=== PATIENT | male | born 1940 | race Caucasian/White ===

== ENCOUNTER 2016-09-09 18:40 | Observation (INO) | payer OTHER ==
[~2016-09-09] VITALS: Ht 182.9 cm; Wt 83.7 kg
[2016-09-09 19:02] LABS: BASO % 0.3 %; BASO ABS # 0.02 K/uL (0-0.2); COMPLETE YES; EOS % 5.6 %; HEMATOCRIT 43.7 % (42-52); IG% 0.2 %; LYMPH % 11.4 %; LYMPH ABS # 0.76 K/uL (1.2-3.4); MEAN CORPUSCULAR HEMOGLOBIN 33.1 pg (25-34); MEAN CORPUSCULAR HGB CONC 35.9 g/dl (32-36); MEAN PLATELET VOLUME 10.9 fL (7.4-10.4); MONO % 6.2 %; NEUT % 76.3 %; PLATELET COUNT 124 K/uL (130-400); RED BLOOD COUNT 4.75 M/uL (4.7-6.1); WHITE BLOOD COUNT 6.65 K/uL (4.8-10.8)
[2016-09-09 19:18] LABS: BUN/CREATININE RATIO 13.5 (10-20); CALCIUM 9.3 mg/dl (8.5-10.1); CREATININE 1.2 mg/dl (0.60-1.40); POTASSIUM 3.9 mmol/L (3.5-5.1)
[2016-09-09 19:23] LABS: CKMB/CK RATIO 2.3 (0-3.0)
--- NOTE | 2016-09-09 19:34 | DIAGNOSTIC IMAGING REPORT ---
CHEST ONE VIEW PORTABLE HISTORY: Atypical Chest Pain COMPARISON: None. FINDINGS: No pneumothorax. No pleural effusions. The heart is top normal in size. This mild diffuse interstitial thickening. A few linear densities the left lung base favor subsegmental atelectasis. No focal lung consolidations to suggest pneumonia. IMPRESSION: Mild diffuse interstitial thickening. This could be chronic or due to mild congestive change. Electronically signed by: Rickie Castle M.D. 09/09/2016 7:33 PM Dictated Date/Time: 09/09/2016 7:32 PM
[2016-09-09] MEDS ORDERED: NITROGLYCERIN OINT 2% 1GM PACKET EXT SCH (20:00)
[2016-09-09] MEDS ORDERED: NITROGLYCERIN OINT 2% 1GM PACKET ONE (20:10)
[2016-09-09] MEDS ORDERED: OMEG12006 PO (20:22)
[2016-09-09] MEDS ORDERED: DOCU100C31 PO (20:22)
[2016-09-09] MEDS ORDERED: PROAIR INH (20:22)
[2016-09-09] MEDS ORDERED: TRAZ50TA35 PO (20:22)
[2016-09-09] MEDS ORDERED: ALOE1GEL2 TOP (20:22)
[2016-09-09] MEDS ORDERED: FLUT230A INH (20:22)
[2016-09-09] MEDS ORDERED: ASPI81TA28 PO (20:22)
[2016-09-09] MEDS ORDERED: TUMERIC PO (20:22)
[2016-09-09] MEDS ORDERED: [UNRECOGNIZED DRUG - OTHER] PO (20:22)
[2016-09-09] MEDS ORDERED: LISI-729 PO (20:22)
[2016-09-09] MEDS ORDERED: ALOE500C PO (20:31)
--- NOTE | 2016-09-09 20:39 | EMERGENCY ROOM VISIT NOTE ---
History Report prepared by Virgie: Adam Daniel Under the Supervision of: Dr. Chandan Lantigua D.O. First contact with patient: 18:44 Chief Complaint: CHEST PAIN Stated Complaint: CHEST PAIN History of Present Illness The patient is a 76 year old male who presents to the Emergency Room with complaints of persistent chest pains that began this evening at 1500, four hours prior to arrival. He describes this pain as somewhat "sharp." This pain is separate from a chronic pain that he has been experiencing for the past 3-4 days. This pain feels like a "cramp" in his left/right upper abdomen. This pain is reproducible with palpation. He is also experiencing some dyspnea on exertion , and states that he has been becoming short of breath when walking up the stairs which is not normal for him. The patient also began to develop a cold yesterday and has been coughing persistently. The patient met with a welder gas tungsten arc a few days prior to arrival where he had an echocardiogram and chest CT performed. He was told that he had a cardiomegaly, a heart murmur, and a rapid heart beat. He is scheduled to meet with a welder gas tungsten arc on September 18. Pt denies headache, change in vision, fevers, nausea, vomiting, diarrhea, pain with urination, and melena. 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 A total of 10 systems reviewed and were otherwise negative. Past Medical & Surgical Medical Problems: (1) Chest pain Family History No pertinent family history secondary to age. Social History Drug Use: none Marital Status: Housing Status: lives with significant other Occupation Status: retired Current/Historical Medications Scheduled Aloe Vera (Aloe Vera), 1 TAB PO DAILY Aspirin (Aspirin Ec), 81 MG PO DAILY Fluticasone-Salmeterol 230/21 Mcg (Advair Hfa 230/21 Mcg), 2 PUFFS INH BID Lisinopril (Prinivil), 5 MG PO DAILY [place]-3 Fatty Acids ([place] 3), 1 CAP PO DAILY Trazodone Hcl (Trazodone), 0.25 MG PO HS [Proair], 2 PUFF INH PRN UD [Super Beats], 1 DOSE PO DAILY [Tumeric], 1 TAB PO DAILY Scheduled PRN Docusate Sodium (Docusate Sodium), 1 CAP PO BID PRN for Constipation Allergies Coded Allergies: Adhesives (Verified Allergy, Unknown, RASH, 09/09/16) Ciprofloxacin (Verified Allergy, Unknown, HIVES, 09/09/16) Tramadol (Verified Allergy, Unknown, HIVES, 09/09/16) Uncoded Allergies: SEASONAL (Allergy, Unknown, SNEEZING, 09/09/16) Physical Exam Vital Signs Date Time Temp Pulse Resp B/P Pulse Ox O2 Delivery O2 Flow Rate FiO2 09/09/16 20:14 73 16 113/65 94 Room Air 09/09/16 19:35 73 16 111/68 93 Room Air 09/09/16 19:02 82 09/09/16 18:52 Room Air 09/09/16 18:48 95 Room Air 09/09/16 18:48 36.5 84 18 141/72 95 Room Air Physical Exam GENERAL: Sitting up in bed. Well appearing, well nourished, no distress, non- toxic EYE EXAM: normal conjunctiva, PERRL and EOM's grossly intact OROPHARYNX: no exudate, no erythema, lips, buccal mucosa, and tongue normal and mucous membranes are moist NECK: supple, no nuchal rigidity, no adenopathy, non-tender LUNGS: Clear to auscultation. Normal chest wall mechanics CHEST: Reproducible left chest wall tenderness. HEART: no murmurs, S1 normal and S2 normal ABDOMEN: abdomen soft, non-tender, normo-active bowel sounds, no masses, no rebound or guarding. BACK: Back is symmetrical on inspection and there is no deformity, no midline tenderness, no CVA tenderness. SKIN: no rashes and no bruising UPPER EXTREMITIES: upper extremities are grossly normal. LOWER EXTREMITIES: Calves are equal bilaterally. No pitting edema. NEURO EXAM: Normal sensorium, cranial nerves II-XII grossly intact, normal speech, no gross weakness of arms, no gross weakness of legs. Medical Decision & Procedures ER Provider Diagnostic Interpretation: Xray results per the radiologist and my interpretation. CHEST ONE VIEW PORTABLE HISTORY: Atypical Chest Pain COMPARISON: None. FINDINGS: No pneumothorax. No pleural effusions. The heart is top normal in size. This mild diffuse interstitial thickening. A few linear densities the left lung base favor subsegmental atelectasis. No focal lung consolidations to suggest pneumonia. IMPRESSION: Mild diffuse interstitial thickening. This could be chronic or due to mild congestive change. Electronically signed by: Rickie Castle M.D. 09/09/2016 7:33 PM Dictated Date/Time: 09/09/2016 7:32 PM Laboratory Results 09/09/16 18:50 Red Blood Count 4.75, Mean Corpuscular Volume 92.0, Mean Corpuscular Hemoglobin 33.1, Mean Corpuscular Hemoglobin Concent 35.9, Mean Platelet Volume 10.9, Neutrophils (%) (Auto) 76.3, Lymphocytes (%) (Auto) 11.4, Monocytes (%) (Auto) 6.2, Eosinophils (%) (Auto) 5.6, Basophils (%) (Auto) 0.3, Neutrophils # (Auto) 5.08, Lymphocytes # (Auto) 0.76, Monocytes # (Auto) 0.41, Eosinophils # (Auto) 0.37, Basophils # (Auto) 0.02 09/09/16 18:50 Test 09/09/16 18:50 White Blood Count 6.65 K/uL (4.8-10.8) Red Blood Count 4.75 M/uL (4.7-6.1) Hemoglobin 15.7 g/dL (14.0-18.0) Hematocrit 43.7 % (42-52) Mean Corpuscular Volume 92.0 fL (80-100) Mean Corpuscular Hemoglobin 33.1 pg (25-34) Mean Corpuscular Hemoglobin Concent 35.9 g/dl (32-36) Platelet Count 124 K/uL (130-400) Mean Platelet Volume 10.9 fL (7.4-10.4) Neutrophils (%) (Auto) 76.3 % Lymphocytes (%) (Auto) 11.4 % Monocytes (%) (Auto) 6.2 % Eosinophils (%) (Auto) 5.6 % Basophils (%) (Auto) 0.3 % Neutrophils # (Auto) 5.08 K/uL (1.4-6.5) Lymphocytes # (Auto) 0.76 K/uL (1.2-3.4) Monocytes # (Auto) 0.41 K/uL (0.11-0.59) Eosinophils # (Auto) 0.37 K/uL (0-0.5) Basophils # (Auto) 0.02 K/uL (0-0.2) RDW Standard Deviation 45.9 fL (36.4-46.3) RDW Coefficient of Variation 13.6 % (11.5-14.5) Immature Granulocyte % (Auto) 0.2 % Immature Granulocyte # (Auto) 0.01 K/uL (0.00-0.02) Anion Gap 9.0 mmol/L (3-11) Est Creatinine Clear Calc Drug Dose 63.4 ml/min Estimated GFR () 67.7 Estimated GFR (Non- 58.4 BUN/Creatinine Ratio 13.5 (10-20) Calcium Level 9.3 mg/dl (8.5-10.1) Total Creatine Kinase 154 U/L (39-308) Creatine Kinase MB 3.6 ng/ml (0.5-3.6) Creatine Kinase MB Ratio 2.3 (0-3.0) Troponin I 0.024 ng/ml (0-0.045) Laboratory results per my review. Medications Administered Medications (Trade) Dose Ordered Sig/Arsenio Route Start Time Stop Time Status Last Admin Dose Admin Nitroglycerin (Nitroglycerin 2% Oint) 1 inch Q6H EXT 09/09/16 20:00 09/09/16 22:54 DC 09/09/16 20:13 1 INCH ECG Indication: chest pain Rate (beats per minute): 85 Rhythm: sinus rhythm Findings: other (LAD, Peak t-wave in V2) ED Course ED COURSE: Vital signs were reviewed and showed normal vitals. The patients medical record was reviewed The above diagnostic studies were performed and reviewed. ED treatments and interventions as stated above. 1847: The patient was evaluated in room A12. A complete history and physical examination was performed. 0: I discussed the case with Physician Assistant Dick at this time, she will evaluate the patient for further treatment. 1958: I checked on the patient at this time, he denies any new chest pain or shortness of breath. 1999: Ordered Nitroglycerin 1 inch EXT. 2002: Upon reevaluation, the patient is feeling well.I discussed my findings with the patient and he understands and agrees with the treatment plan. Based on the patients age, coexisting illnesses, exam and lab findings the decision to treat as an inpatient was made. The patient remained stable while under my care. The patient will be evaluated for further management. Medical Decision Differential diagnoses includes but is not limited to acute coronary syndrome, myocardial infarction, pericarditis, pulmonary embolus, aortic dissection, pneumonia, pneumothorax, musculoskeletal, shingles, esophageal. Patient is a 76-year-old male who presents the ER for 2 distinct tightness of chest pain. He has had one sharp left-sided chest pain which is been present for the past 3 days. This has been unchanged. It is worsened on palpation. He also complains of a another dull achy chest pain which is located on the left side of his chest. That has been coming and going all day today. It worsened around 3 PM. No radiation to the jaw or arm. Mild shortness of breath. Pain was completely relieved with one nitroglycerin via EMS. He was given 4 aspirins. Per report from he does have a history of a cardiomyopathy. Uncertain of the etiology as this was worked up at [facility]. EKG was repeated and did have a new flipped T-wave in the inferior lead. He declined any new chest pain or shortness of breath. He was placed on Nitropaste. Upon was tachycardic but not positive. With him being chest pain-free and a positive troponin did not elect to start him on heparin drip at this time. Discussed case with internal medicine and he was admitted stable for cardiac workup. Consults Time Called: 1949 Consulting Physician: Physician Assistant Laurie Dick Returned Call: 1958 I discussed the case with Physician Assistant Dick at this time, she will evaluate the patient for further treatment. Impression Primary Impression: Unstable angina Additional Impression: Acute electrocardiogram changes Scribe Attestation The scribe's documentation has been prepared under my direction and personally reviewed by me in its entirety. I confirm that the note above accurately reflects all work, treatment, procedures, and medical decision making performed by me. Departure Information Dispostion Being Evaluated By Hospitalist Patient Instructions My [facility] Problem Qualifiers
--- NOTE | 2016-09-09 20:49 | History and Physical ---
History & Physical Date & Time of Service: Sep 09, 2016 at 20:32 Chief Complaint: Chest Pain Primary Care Physician: No Doctor, Assigned History of Present Illness Source: patient, family, hospital records This patient is a 76-year-old male presents emergency department complaining of a cramp-like sensation on both sides of his chest that has been going on intermittently over the last 4 days. He also notes that he has had dyspnea after scaling one flight of steps. This has been going on for the last several weeks. The patient is still complaining of the pain. In Route to the emergency department, the patient received nitroglycerin. This did not significantly change his pain. The patient reportedly had an echocardiogram and a CT of his chest one week ago. He was initially told that the tests were normal. He was called 2 days later and told that he had cardiomegaly. They advised him on limiting exercise until he could be seen by a air tucker. He is scheduled to see a air tucker in [place] next week. The patient denies any other known coronary artery disease. He does not smoke. He did remain active throughout his life. The patient also reports a cold with a mild productive cough. No fever or chills. This is been going on for quite some time. He does have a history of asthma that was confirmed with PFTs last week. Past Medical/Surgical History Asthma HTN anxiety Family History Mother- in her 80s. History of diabetes Father-also in his 80s from lung disease-he was a coal deliverer and a heavy smoker Social History Smoking Status: Never Smoker Alcohol Use: socially Marital Status: Housing status: lives with significant other Occupational Status: retired Multi-Drug Resistant Organisms History of MDRO: No Allergies Coded Allergies: Adhesives (Verified Allergy, Unknown, RASH, 09/09/16) Ciprofloxacin (Verified Allergy, Unknown, HIVES, 09/09/16) Tramadol (Verified Allergy, Unknown, HIVES, 09/09/16) Uncoded Allergies: SEASONAL (Allergy, Unknown, SNEEZING, 09/09/16) Home Medications Scheduled Aloe Vera (Aloe Vera), 1 TAB PO DAILY Aspirin (Aspirin Ec), 81 MG PO DAILY Fluticasone-Salmeterol 230/21 Mcg (Advair Hfa 230/21 Mcg), 2 PUFFS INH BID Metoprolol Tartrate (Lopressor), 25 MG PO BID [place]-3 Fatty Acids ([place] 3), 1 CAP PO DAILY Trazodone Hcl (Trazodone), 0.25 MG PO HS [Proair], 2 PUFF INH PRN UD [Super Beats], 1 DOSE PO DAILY [Tumeric], 1 TAB PO DAILY Scheduled PRN Docusate Sodium (Docusate Sodium), 1 CAP PO BID PRN for Constipation Review of Systems 10 system review performed and negative unless noted in HPI or below Physical Exam Vital Signs Date Time Temp Pulse Resp B/P Pulse Ox O2 Delivery O2 Flow Rate FiO2 09/09/16 19:35 73 16 111/68 93 Room Air 09/09/16 19:02 82 09/09/16 18:52 Room Air 09/09/16 18:48 95 Room Air 09/09/16 18:48 36.5 84 18 141/72 95 Room Air General Appearance: + mild distress (mildly anxious in appearance) Head: normocephalic Eyes: EOMI Neck: no JVD Respiratory/Chest: lungs clear, + pertinent finding (TTP L anterior chest) Cardiovascular: regular rate, rhythm Abdomen/GI: normal bowel sounds, non tender, soft Extremities/Musculoskelatal: no calf tenderness, no pedal edema Neurologic/Psych: oriented x 3 Skin: warm/dry Diagnostics Laboratory Results Results Past 24 Hours Test 09/09/16 18:50 Range/Units White Blood Count 6.65 4.8-10.8 K/uL Red Blood Count 4.75 4.7-6.1 M/uL Hemoglobin 15.7 14.0-18.0 g/dL Hematocrit 43.7 42-52 % Mean Corpuscular Volume 92.0 80-100 fL Mean Corpuscular Hemoglobin 33.1 25-34 pg Mean Corpuscular Hemoglobin Concent 35.9 32-36 g/dl Platelet Count 124 130-400 K/uL Mean Platelet Volume 10.9 7.4-10.4 fL Neutrophils (%) (Auto) 76.3 % Lymphocytes (%) (Auto) 11.4 % Monocytes (%) (Auto) 6.2 % Eosinophils (%) (Auto) 5.6 % Basophils (%) (Auto) 0.3 % Neutrophils # (Auto) 5.08 1.4-6.5 K/uL Lymphocytes # (Auto) 0.76 1.2-3.4 K/uL Monocytes # (Auto) 0.41 0.11-0.59 K/uL Eosinophils # (Auto) 0.37 0-0.5 K/uL Basophils # (Auto) 0.02 0-0.2 K/uL RDW Standard Deviation 45.9 36.4-46.3 fL RDW Coefficient of Variation 13.6 11.5-14.5 % Immature Granulocyte % (Auto) 0.2 % Immature Granulocyte # (Auto) 0.01 0.00-0.02 K/uL Sodium Level 140 136-145 mmol/L Potassium Level 3.9 3.5-5.1 mmol/L Chloride Level 104 98-107 mmol/L Carbon Dioxide Level 27 21-32 mmol/L Anion Gap 9.0 3-11 mmol/L Blood Urea Nitrogen 16 7-18 mg/dl Creatinine 1.20 0.60-1.40 mg/dl Est Creatinine Clear Calc Drug Dose 63.4 ml/min Estimated GFR () 67.7 Estimated GFR (Non- 58.4 BUN/Creatinine Ratio 13.5 10-20 Random Glucose 93 70-99 mg/dl Calcium Level 9.3 8.5-10.1 mg/dl Total Creatine Kinase 154 39-308 U/L Creatine Kinase MB 3.6 0.5-3.6 ng/ml Creatine Kinase MB Ratio 2.3 0-3.0 Troponin I 0.024 0-0.045 ng/ml Diagnostic Radiology Patient Name: ARNAV ALFARO Unit Number: [id number] Dictated: 09/09/161931 Transcribed: 09/09/161931 Sprout Printed Date/Time: [~ rep prt dt]/[~ rep prt tm] [~ rep ct labl] - [~ rep ct ivnm] [facility] [place] [address] Dictated: 09/09/161931 Transcribed: 09/09/161931 Array Storm Printed Date/Time: [~ rep prt dt]/[~ rep prt tm] [~ rep ct labl] - [~ rep ct ivnm] Patient: ARNAV ALFARO Address1: [address] [place] [address] Rec: [id number] Address2: Acct ID: [id number] [facility] Zip: [place] [id number] Date: 1940 Sex: M Room/Bed: Ref Phy: SC: MARCELINO Att Phy: Report #: [id number] Rimma Phy: Test: [id number] Admit Phy: Medical Record Administrator: JUVENAL Interpreting Phy: Rickie Castle MD Diagnosis: CHEST PAIN Ordering Phy: Chandan Lantigua DO Service Date: 09/09/16 Admit Date: 09/09/16 MNE: [id number] CONF: DICTATED BY: Rickie Castle M.D.]] CC: Chandan Lantigua, Endcc: [~ rep ct add3]] CHEST ONE VIEW PORTABLE HISTORY: Atypical Chest Pain COMPARISON: None. FINDINGS: No pneumothorax. No pleural effusions. The heart is top normal in size. This mild diffuse interstitial thickening. A few linear densities the left lung base favor subsegmental atelectasis. No focal lung consolidations to suggest pneumonia. IMPRESSION: Mild diffuse interstitial thickening. This could be chronic or due to mild congestive change. Electronically signed by: Rickie Castle M.D. 09/09/2016 7:33 PM Dictated Date/Time: 09/09/2016 7:32 PM The status of this report is Signed. Draft = Not yet reviewed or approved by Radiologist. Signed = Reviewed and approved by Radiologist. <AttendingPhy></AttendingPhy> <FamilyPhy></FamilyPhy> <PrimaryPhy></PrimaryPhy> <UnitNumber>[id number]</UnitNumber> <VisitNumber>[id number]</VisitNumber> < PatientName>ARNAV ALFARO</PatientName> <DateOfBirth>1940</DateOfBirth > <Location>[facility]</Location> <ServiceDate>09/09/16</ServiceDate> <MNE>ESINDI</ MNE> <OrderingPhy>Chandan Lantigua DO</OrderingPhy> <OrderingPhyMNE>f rep ord mne</OrderingPhyMNE> <DictatingPhyMNE>f rep dict mne</DictatingPhyMNE> < CCListMNE>f rep ct mne</CCListMNE> <AdmittingPhyMNE>f pt admit dr blanco</ AdmittingPhyMNE> <AttendingPhyMNE>f pt attend dr blanco</AttendingPhyMNE> <ConsultingPhyMNE>f pt consult dr blanco</ConsultingPhyMNE> <FamilyPhyMNE>f pt fam dr blanco</FamilyPhyMNE> <OtherPhyMNE>f pt other dr blanco</OtherPhyMNE> < PrimaryPhyMNE>f pt prim care dr blanco</PrimaryPhyMNE> <ReferringPhyMNE>f pt referring dr blanco</ReferringPhyMNE> EKG NSR 85 BPM T wave inversions in III Impression Assessment and Plan 76 y/o male with possible history of cardiomegaly presenting with CP/cramping for 3-4 days. Reproducible pain on exam, but did have some T wave inversions in lead III Chest pain -observe in telemetry -follow cardiac enzymes every 8 hr x 2 -daily EKG -EKG with worsening pain -continue ASA -continue nitroglycerin paste -echo in AM -cardiology consult: [facility] HTN -continue lisinopril 5 mg daily Asthma -continue Advair -duonebs PRN Cough-chronic Anxiety -Continue trazodone 0.25 mg HS DVT prophylaxis -Consider chemical means if pt is not d/c'ed tomorrow -TEDS, SCDs CODE STATUS -LEVEL I FULL CODE Level of Care Telemetry Resuscitation Status FULL RESUSCITATION VTE Prophylaxis Risk Level: Low Given or contraindicated: T.EVarun Stockings, SCD's Assessment and Plan Attending Addendum: I have physically seen and examined this patient, have directed their medical care, have supervised the PA's activity, and agree with the H&P as noted above, with the following changes: NONE. Ex The patient is awake, alert and oriented 3, normocephalic and atraumatic, lying in bed , anxious, and in mild distress. HEENT--PERRL, EOMI, mucous membranes and oropharynx dry. Neck--supple, no JVD or bruits, thyroid normal, trachea midline, no adenopathy. Heart--normal S1 and S2, no extra beats, no murmurs, rubs or gallops. Lungs--clear bilaterally with good air movement, no respiratory distress, no accessory muscle use, mildly tender to touch left anterior chest wall. Abdomen--normal bowel sounds and soft, nontender and nondistended, no hernias or masses, no organomegaly. Extremities--no cyanosis, clubbing or edema. There are good distal pulses b/l. Dermatologic--normal skin turgor, normal color, warm and dry, no abnormal lymph nodes, no rash. Neurologic--cranial nerves II through XII grossly intact, motor and sensory examination normal. Rheumatologic--normal range of motion, nontender, muscles and joints. Psychiatric--mildly anxious. Assessment and Plan: Precordial Chest Pain/hypertension--the patient be admitted to the telemetry unit, for serial cardiac enzymes, cardiac rhythm monitoring and a 2-D echocardiogram with Dopplers. His EKG did show T-wave inversions in lead III. We'll place on aspirin 81 mg by mouth daily, Nitropaste 1 inch anterior chest wall every 6 hours, and consult cardiology in the a.m. . Continue lisinopril 5 mg by mouth daily. Asthma--continue Advair, but if his cardiac workup is negative, and the chest pain is recurrent, would consider changing him to Flovent and removing the salmeterol component. DuoNeb's will be available to 4 hours when necessary. Anxiety/insomnia --continue trazodone 0.25 mg by mouth at bedtime.
[2016-09-09] MEDS ORDERED: TRAZODONE HCL 50 MG TAB PO SCH (21:00)
[2016-09-09] MEDS ORDERED: ALBUT/IPRATROP 3MG/0.5MG NEB 3 ML VIAL INH PRN (21:00)
[2016-09-09] MEDS ORDERED: ONDANSETRON INJ 2 MG/ML 2 ML VIAL IV PRN (21:00)
[2016-09-09] MEDS ORDERED: ACETAMINOPHEN 325 MG TAB PO PRN (21:00)
[2016-09-09] MEDS ORDERED: IV FLUIDS COMPLETED PRN (21:30)
[2016-09-10] MEDS: NITROGLYCERIN OINT 2% 1GM PACKET EXT SCH ×2 (01:53→09:40)
[2016-09-10 02:37] VITALS: BP 127/73; PULSE 70; TEMP 36.6; O2SAT 97; Ht 182.9 cm; Wt 83.7 kg
[2016-09-10 03:03] LABS: HEMATOCRIT 38.4 % (42-52); MEAN CELL VOLUME 89.9 fL (80-100); MEAN CORPUSCULAR HEMOGLOBIN 32.1 pg (25-34); MEAN CORPUSCULAR HGB CONC 35.7 g/dl (32-36); RED BLOOD COUNT 4.27 M/uL (4.7-6.1)
[2016-09-10 03:29] LABS: BLOOD UREA NITROGEN 16 mg/dl (7-18); BUN/CREATININE RATIO 15.9 (10-20); CALCIUM 8.5 mg/dl (8.5-10.1); CARBON DIOXIDE 26 mmol/L (21-32); CHLORIDE 105 mmol/L (98-107); GLUCOSE 104 mg/dl (70-99); MAGNESIUM 2.1 mg/dl (1.8-2.4); MEAN PLATELET VOLUME 9.9 fL (7.4-10.4); PLATELET COUNT 97 K/uL (130-400); POTASSIUM 4.1 mmol/L (3.5-5.1); SODIUM 139 mmol/L (136-145)
[2016-09-10 03:30] LABS: BASO % 0.2 %; BASO ABS # 0.01 K/uL (0-0.2); COMPLETE YES; EOS % 3.3 %; IG% 0.2 %; LYMPH % 7.8 %; LYMPH ABS # 0.49 K/uL (1.2-3.4); MONO % 6.7 %; NEUT % 81.8 %; PLT ESTIMATE DECREASED
[2016-09-10 03:34] LABS: CKMB/CK RATIO 2.5 (0-3.0)
[2016-09-10 08:00] VITALS: BP 131/75; PULSE 73; TEMP 36.9; O2SAT 96
[2016-09-10] MEDS ORDERED: LISINOPRIL 5 MG TAB PO SCH (09:00)
[2016-09-10] MEDS ORDERED: ASPIRIN 81 MG ECTAB PO SCH (09:00)
[2016-09-10] MEDS ORDERED: METOPROLOL TARTRATE 25 MG TAB PO SCH (09:30)
[2016-09-10] MEDS ORDERED: LPR25 PO (10:13)
--- NOTE | 2016-09-10 10:18 | Discharge Instructions ---
Discharge Instructions Admission Reason for Admission: Chest Pain Discharge Discharge Diagnosis / Problem: atypical Chest pain Discharge Goals Goal(s): Decrease discomfort, Improve function, Increase independence, Improve disease control, Improve nutritional status, Learn about illness, Diagnostic testing, Therapeutic intervention, Prevent Disease Progression, Specific goals Activity Recommendations Activity Limitations: resume your previous activity . Instructions / Follow-Up Instructions / Follow-Up you have chest pain and history of cardiomegaly clay artist saw you, you need to follow up with cardiology as instructed You are on Aspirin , you need to continue it, However, your Platelet count is dropping yesterday was 124 K, to day is 97 K, You need to follow up with your primary care physician or clay artist to adjust the medication of Aspirin, and follow-up lab checking of Platelet levels , I recommend to check Platelet level in 2 week with your family doctor You have hypertension your blood pressure medicine is changed in this hospitalization - call your pcp if have chest pain, sob, palpitation, or if has any questions - take medication as instructed, never overdose or any misuse, or take with alcohol, because misuse of medicine may cause organ damage or , call your primary care physician if have questions of medicaitons. - call your primary care physician OR go to local emergency room if has any fever/chill, chest pain, shortness of breathing, nausea/vomiting/abdominal pain , facial droop/slurry speech/local weakness, or if has any questions. - fall precaution - diet as instructed - you need to follow up with your subspecialist - you should understand that it is important to follow up the above instruction , and "not following the above instruction" may cause delayed or missed care of your medical conditions which may cause permanent organ damage and even . Current Hospital Diet Patient's current hospital diet: Regular Diet Discharge Diet Recommended Diet: AHA Diet (Heart Healthy) Pending Studies Studies pending at discharge: no Medical Emergencies . Who to Call and When: Medical Emergencies: If at any time you feel your situation is an emergency, please call 911 immediately. . Non-Emergent Contact Non-Emergency issues call your: Primary Care Provider, Tableau Analyst . . "Provider Documentation" section prepared by Stephen Mishra. VTE Core Measure Inpt VTE Proph given/why not?: Caitlin Ferrer, HALI's
--- NOTE | 2016-09-10 10:42 | CARDIOLOGY CONSULTATION ---
DATE OF CONSULTATION: 09/10/2016 REQUESTING: Dr. Alycia Evans. SENIOR HRIS ANALYST: Guero Rice DO, [facility]. REASON FOR CONSULTATION: Chest discomfort, shortness of breath, abnormal echocardiogram. Dear Cristina, it was a pleasure to see Lito today in consultation in the Emergency Room with regards to his chest discomfort and progressive shortness of breath. As you know, his history has been well documented. He describes progressive shortness of breath over the last 2 years. He notes in the summer though he could still walk 2 or 3 miles and then in the last of couple of months he is only able to walk about 50 yards before he has to stop. He stops due to progressive dyspnea. He notes it takes him about 5 minutes to recover and then his symptoms improve and again he can walk an additional 50 yards. He notes he went to a sporting event near [place] and had to walk a long distance back to his car and had to stop multiple times. Before the summer he was in incredible shape, [place]. He is an avid outdoorsman and describes even walking in the [facility] even this past fall without significant shortness of breath. He does have some chest discomfort today, it sounds like it is reproducible, it is along his rib margin and then along his sternum bilaterally. He also has a cough. He denies any fevers or chills. He describes some postnasal drip. He describes cramping in his legs to the point that his both legs can entirely cramp. He describes a "circulation problem." With activity, he is noting some lightheadedness currently that is new for him. He denies any presyncope, syncope, lower extremity edema, symptoms of claudication. His appetite is stable. Her weight is stable. He is frustrated that he cannot do what he would like to do and I do think there is a significant anxiety component when he was called after an echocardiogram was completed at [facility] for which he was told to stop doing any and all activity. The rest of review of systems is otherwise negative. PAST MEDICAL HISTORY: 1. Echocardiogram in 08/2016 at [facility] with moderate left ventricular hypertrophy and prominent thickening of the basal anterior septal wall with a LVOT gradient of 2.7 m/sec at rest, which increased to 6 m/sec with Valsalva. There was systolic anterior motion of the anterior mitral valve leaflet with moderate mitral regurgitation. His LV function was preserved at 75%. 2. Asthma, although he had PFTs at [facility] that did not suggest small airway disease his methacholine challenge test was positive. 3. Negative stress echo for ischemia 02/2016 at [facility] exercising to heart rate of 80% of maximal predicted for his age. There was no evidence of exercise-induced regional wall motion abnormalities and no ischemic changes on his EKG. 4. EKG consistent with left ventricular hypertrophy and left anterior fascicular block. 5. Anxiety. OUTPATIENT MEDICATIONS: Aloe vera, aspirin, Advair, lisinopril 5 mg daily, Temple-3 fatty acids, trazodone. SOCIAL HISTORY: Denies any smoking or tobacco. He worked in the . He is . He is an avid outdoorsman. FAMILY HISTORY: Mom in her 80s of diabetes. Father in his 80s from lung disease. 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 PHYSICAL EXAMINATION: GENERAL: He is awake, alert, oriented x3. He is in no acute distress. He looks anxious. VITAL SIGNS: His heart rate is 70, his blood pressure 127/73, he is 97% on room air. HEENT: 2+ carotid upstrokes. He does have carotid bruits radiating likely from his heart bilaterally. His jugular venous pressure did not appear elevated. His sclerae are anicteric. His hearing is normal. LUNGS: Clear to auscultation bilaterally. No rales, rhonchi or wheezing with forced expiration, there was no wheezing present. HEART: Tachycardic, but regular. He has a loud crescendo-decrescendo murmur in systole with Valsalva. The murmur increases in intensity and remains increased even after Valsalva was released and with hand informatics scientist the murmur does lessen consistent with LVOT obstruction. ABDOMEN: Soft, nontender, nondistended, positive bowel sounds. EXTREMITIES: No clubbing, cyanosis or edema. He has brisk pounding 2+ dorsalis pedis pulses. SKIN: No ecchymosis or bruising. NEUROLOGIC: Grossly nonfocal. PSYCHIATRIC: He appeared anxious. MUSCULOSKELETAL: He has reproducible chest discomfort over the left side of his rib cage along the sternum. DATA: EKG here normal sinus rhythm, left ventricular hypertrophy, left anterior fascicular block, unchanged from his EKG of February 2016 at [facility]. Echo and stress echo as discussed above. Chest x-ray mild diffuse interstitial thickening, could be chronic. LABORATORY STUDIES: His troponins are negative x2. His sodium is 139, potassium of 4.1, BUN 16, creatinine 1.0. He does have thrombocytopenia with a platelet count of 97,000 initially 124,000 yesterday. His hemoglobin was 13.7 with a hematocrit of 38.4. IMPRESSION: 1. Hypertrophic cardiomyopathy with thickening of the basal septum with significant concentric left ventricular hypertrophy leading to left ventricular outflow tract gradient from systolic anterior motion of the anterior mitral valve leaflet. 2. A 2.7 m/sec velocity across the LVOT at rest and with Valsalva it increased to 6 m/sec. 3. Extensive pulmonary function tests and a methacholine challenge test and a CAT scan of his chest at [facility] which did reveal some obstructive disease and a positive methacholine challenge test. 4. Significant issues of constipation for which he can go 3 days or more without having a bowel movement and needs to use a bowel prep on a regular basis to move his bowels. 5. Thrombocytopenia of unclear etiology. 6. Recent cold. RECOMMENDATIONS: 1. Discontinue his lisinopril in order to allow more room to give him beta-blockers. 2. Add an AV alejandro gaby to try to slow his heart rate, increase his diastolic filling period and reduce the LVOT obstruction which will also reduce the severity of his mitral regurgitation. As I discussed with him options included beta-blockers or calcium-channel blockers, given his significant constipation I was reluctant to use a calcium-channel gaby. He may have underlying asthma, will have to see if beta-blockers worsen his symptoms. I would also stop his Advair as the long-acting beta agonist is only increasing his heart rate which will make his symptoms of shortness of breath worse. He is scheduled to see Dr. Sawyer at [facility] who is a heart failure specialist dealing with hypertrophic cardiomyopathy on September 18 and I am sure at that visit his medications can be up-titrated further. He had a number of questions in regards to how much activity he could do. I discussed with him that he can do activity until he gets short of breath. If he gets short of breath and fatigued he should stop. I asked him not to walk in the [place] and not to do any hiking or climbing mountains until we can slow his heart rate down effectively. We discussed trying to get his heart rate in to the low 50s and that we would up titrate the medication either until his heart rate became too slow or he started getting lightheaded or dizzy with medication. Additionally, we discussed avoiding dehydration and diuretics. He can be discharged home from the Emergency Room and he will follow up as noted above. If after seeing Dr. Sawyer, he would like to be seen in [place] for part of his visits we can help arrange that. NICANOR
[2016-09-10 10:55] VITALS: BP 125/76; PULSE 74; TEMP 36.9; O2SAT 96
--- NOTE | 2016-09-15 13:12 | Discharge Summary ---
Discharge Summary Date of Service Sep 15, 2016. Discharge Summary Admission Date: Sep 09, 2016 at 20:56 Discharge Date: Sep 10, 2016 Discharge Disposition: Home Principal Diagnosis: chest pain and history of cardiomegaly Problems/Secondary Diagnoses: mild thrombocytopenia hypertension Procedures: no Consultations: block cableman Medication Reconciliation New Medications: Metoprolol Tartrate (Lopressor) 25 Mg Tab 25 MG PO BID for 30 Days, #60 TAB Continued Medications: Aloe Vera (Aloe Vera) Unknown Strength Cap 1 TAB PO DAILY Aspirin (Aspirin Ec) 81 Mg Tab 81 MG PO DAILY Docusate Sodium (Docusate Sodium) 100 Mg Cap 1 CAP PO BID PRN for Constipation for 7 Days, #14 CAP Fluticasone-Salmeterol 230/21 Mcg (Advair Hfa 230/21 Mcg) 1 Aer Aer 2 PUFFS INH BID, AER [place]-3 Fatty Acids ([place] 3) 1 Cap Cap 1 CAP PO DAILY Trazodone Hcl (Trazodone) 50 Mg Tab 0.25 MG PO HS, TAB [Proair] () 2 PUFF INH PRN UD [Super Beats] () 1 DOSE PO DAILY [Tumeric] () 1 TAB PO DAILY Discontinued Medications: Lisinopril (Prinivil) 5 Mg Tab 5 MG PO DAILY, TAB Discharge Exam no chest pain, doing well Review of Systems: Constitutional: No chills, No fatigue, No fever, No problem reported, No sweats, No weakness, No weight loss Eyes: No diplopia, No discharge, No eye pain, No problem reported, No redness, No worsening of vision ENT: No dental problems, No hearing loss, No nasal symptoms, No problem reported, No sore throat, No tinnitus, No trouble swallowing, No unusual epistaxis Respiratory: No cough, No dyspnea at rest, No dyspnea on exertion, No hemoptysis, No problem reported, No shortness of breath, No sputum, No wheezing Cardiovascular: No PND, No chest pain, No claudication, No edema, No orthopnea, No palpitations, No problem reported Abdomen: No GI bleeding, No constipation, No diarrhea, No nausea, No pain, No problem reported, No vomiting Musculoskeletal: No calf pain, No joint pain, No muscle pain, No problem reported, No swelling Genitourinary - Male: No dysuria, No hematuria, No impotence, No lesions, No penile discharge, No problem reported, No urinary frequency, No urinary hesitancy, No urinary incontinence, No urinary retention, No urinary urgency Neurologic: No balance problems, No memory loss, No numbness/tingling, No paralysis, No problem reported, No vertigo, No weakness Psychiatric: No anhedonism, No anxiety, No depression symptoms, No insomnia , No problem reported, No substance abuse Endocrine: No excessive thirst, No excessive urination, No fatigue, No problem reported Hematologic / Lymphatic: No abnormal bleeding/bruising, No clotting problems , No night sweats, No problem reported, No swollen lymph nodes Integumentary: No bleeding, No color change, No itch, No new/changing skin lesions, No problem reported, No rash Hospital Course 76-year-old male who presents the ER for 2 distinct tightness of chest pain on . He has had one sharp left-sided chest pain which is been present for the past 3 days. This has been unchanged. It is worsened on palpation. He also complains of a another dull achy chest pain which is located on the left side of his chest. That has been coming and going all day today. It worsened around 3 PM. No radiation to the jaw or arm. Mild shortness of breath. Pain was completely relieved with one nitroglycerin via EMS. He was given 4 aspirins. Per report from he does have a history of a cardiomyopathy. Uncertain of the etiology as this was worked up at [facility]. EKG was repeated and did have a new flipped T-wave in the inferior lead. He declined any new chest pain or shortness of breath. He was placed on Nitropaste. Upon was tachycardic but not positive. With him being chest pain- free and a positive troponin did not elect to start him on heparin drip at this time. after admission, CE adn tn negx3, no more chest pain, Dr. Rice saw patient, Hypertrophic cardiomyopathy with thickening of the basal septum with significant concentric left ventricular hypertrophy leading to left ventricular outflow tract gradient from systolic anterior motion of the anterior mitral valve leaflet. A 2.7 m/sec velocity across the LVOT at rest and with Valsalva it increased to 6 m/sec. Extensive pulmonary function tests and a methacholine challenge test and a CAT scan of his chest at [facility] which did reveal some obstructive disease and a positive methacholine challenge test. Dr. Rice recs discontinue his lisinopril in order to allow more room to give him beta-blockers, Added an AV alejandro gaby to try to slow his heart rate, increase his diastolic filling period and reduce the LVOT obstruction which will also reduce the severity of his mitral regurgitation. We recs to schedule to see Dr. Sawyer at [facility] who is a heart failure specialist dealing with hypertrophic cardiomyopathy on September 18, 2016. patient discharged in stable conditions. Instructions / Follow-Up you have chest pain and history of cardiomegaly block cableman saw you, you need to follow up with cardiology as instructed You are on Aspirin , you need to continue it, However, your Platelet count is dropping yesterday was 124 K, to day is 97 K, You need to follow up with your primary care physician or block cableman to adjust the medication of Aspirin, and follow-up lab checking of Platelet levels , I recommend to check Platelet level in 2 week with your family doctor You have hypertension your blood pressure medicine is changed in this hospitalization - call your pcp if have chest pain, sob, palpitation, or if has any questions - take medication as instructed, never overdose or any misuse, or take with alcohol, because misuse of medicine may cause organ damage or , call your primary care physician if have questions of medicaitons. - call your primary care physician OR go to local emergency room if has any fever/chill, chest pain, shortness of breathing, nausea/vomiting/abdominal pain , facial droop/slurry speech/local weakness, or if has any questions. - fall precaution - diet as instructed - you need to follow up with your subspecialist - you should understand that it is important to follow up the above instruction , and "not following the above instruction" may cause delayed or missed care of your medical conditions which may cause permanent organ damage and even . Total Time Spent: Less than 30 minutes This includes examination of the patient, discharge planning, medication reconciliation, and communication with other providers. Discharge Instructions Please refer to the electronic Patient Visit Report (Discharge Instructions) for additional information. Additional Copies To Guero Rice, DO
== END 2016-09-10 11:10 | disposition home or self-care (01) ==
LOC: EDBD 18:40 → C.EDA 18:41 → C.EDINP 20:56 → CANBEDREQ 09-10 11:10 → C.EDINP 09-10 11:10
PROVIDERS: ADMIT Hospitalist; ATTEND Hospitalist
DX: R07.89 Other chest pain (principal); I42.2 Other hypertrophic cardiomyopathy; D69.6 Thrombocytopenia, unspecified; R05 Cough; J45.909 Unspecified asthma, uncomplicated; I10 Essential (primary) hypertension; F41.9 Anxiety disorder, unspecified; Z79.899 Other long term (current) drug therapy; Z79.82 Long term (current) use of aspirin